=== PATIENT | female | born 1990 | race Hispanic/Latino ===

== ENCOUNTER 2021-06-08 10:42 | Outpatient (CLI) | payer OTHER | END 2021-06-08 10:43 | disposition home or self-care (01) | LOC: RAD 10:42 | PROVIDERS: ATTEND Family Medicine | DX: J98.01 Acute bronchospasm (principal); R05 Cough | CPT/HCPCS: 71046 ==

== ENCOUNTER 2021-09-14 19:54 | Emergency (ER) ==
[2021-09-14] MEDS ORDERED: guaiFENesin/Codeine 200 mg/20 mg 10 ml Cup PO SCH (21:15)
[2021-09-14] MEDS ORDERED: Dexamethasone 4 MG TAB ONE (22:02)
== END 2021-09-14 22:07 | disposition home or self-care (01) ==
LOC: ERS 19:54
DX: R05.9 Cough, unspecified (principal); Z20.822 Contact with and (suspected) exposure to COVID-19
CPT/HCPCS: 71045; J8540